=== PATIENT | female | born 1945 | race Caucasian/White ===

== ENCOUNTER 2025-02-26 08:43 | Observation (INO) ==
--- NOTE | 2025-01-25 14:11 | PAT Medication Instructions ---
Medication Instructions Date of Service January 25, 2025 Home Medications calcium citrate 200 mg PO BID cholecalciferol (vitamin D3) 25 mcg (1,000 unit) capsule (Vitamin D3) 25 mcg PO QAM coenzyme Q10 200 mg capsule (Co Q-10) 200 mg PO BID hydroxyzine pamoate 25 mg capsule 25 mg PO HS PRN Angioedema omalizumab 75 mg/0.5 mL subcutaneous syringe 0.5 mg subcut MONTHLY red yeast rice 600 mg tablet 600 mg PO BID albuterol sulfate 90 mcg/actuation aerosol inhaler 2 puff inhalation QID PRN asthma cetirizine 10 mg tablet 10 mg PO DAILY PRN Angioedema flaxseed oil 1,000 mg capsule 1,000 mg PO BID xtgilgyzmvlb-sljrffm-zzrts acid 400 mcg-lutein 250 mcg chewable tablet (Centrum Silver) 1 tab PO DAILY peg 400-propylene glycol 0.4 %-0.3 % eye drops (Systane Ultra) 2 drp ophthalmic (eye) BID PRN Dry Eyes sodium chloride 5 % eye ointment (Ilya 128) 1 applic ophthalmic (eye) HS vit C 250 mg-E 90 mg-zinc 40 mg-copper 1 cq-svhbid-tinqfu chew tablet (PreserVision AREDS-2) 1 tab PO AMPM Continue as directed hydroxyzine pamoate 25 mg capsule 25 mg PO HS PRN Angioedema (if needed) cetirizine 10 mg tablet 10 mg PO DAILY PRN Angioedema (if needed) ASK your prescriber and surgeon omalizumab 75 mg/0.5 mL subcutaneous syringe 0.5 mg subcut MONTHLY STOP taking 2 weeks before surgery (or as soon as possible if surgery is within 2 weeks) coenzyme Q10 200 mg capsule (Co Q-10) 200 mg PO BID flaxseed oil 1,000 mg capsule 1,000 mg PO BID vit C 250 mg-E 90 mg-zinc 40 mg-copper 1 pl-ezzmsi-ckhbnb chew tablet (PreserVision AREDS-2) 1 tab PO AMPM red yeast rice 600 mg tablet 600 mg PO BID DO NOT take the morning of surgery calcium citrate 200 mg PO BID cholecalciferol (vitamin D3) 25 mcg (1,000 unit) capsule (Vitamin D3) 25 mcg PO QAM eetlcejasztm-dddrjuh-ieszo acid 400 mcg-lutein 250 mcg chewable tablet (Centrum Silver) 1 tab PO DAILY Take morning of surgery With a small sip of water, OTHERWISE NOTHING TO EAT OR DRINK AFTER MIDNIGHT: albuterol sulfate 90 mcg/actuation aerosol inhaler 2 puff inhalation QID PRN asthma (use if needed; please bring rescue inhaler with you to hospital day of surgery if possible) peg 400-propylene glycol 0.4 %-0.3 % eye drops (Systane Ultra) 2 drp ophthalmic (eye) BID PRN Dry Eyes (if needed) Take evening before surgery calcium citrate 200 mg PO BID albuterol sulfate 90 mcg/actuation aerosol inhaler 2 puff inhalation QID PRN asthma (if needed) peg 400-propylene glycol 0.4 %-0.3 % eye drops (Systane Ultra) 2 drp ophthalmic (eye) BID PRN Dry Eyes (if needed) sodium chloride 5 % eye ointment (Ilya 128) 1 applic ophthalmic (eye) HS Other Notes If you have any questions please call us at [phone] or [phone] or [phone] or [phone]
--- NOTE | 2025-01-28 09:28 | Anesthesiology Consultation ---
Date of Service January 28, 2025 Assessment & Plan (1) Encounter for pre-operative examination: - asthma exacerbation if exposed to perfume, scented lotion, etc. OR made aware. - Outpatient joint assessment: Patient is currently scheduled for inpatient pathway. If re-evaluated and patient/surgeon requests outpatient pathway, patient is not recommended candidate for outpatient joint program. Chart Review Chart Review: Acceptable Risk for Surgery and Patient seen in Pre Admission Testing Teaching & Discussion Pre-Anesthesia Teaching/Discussion Notes: Instructed NPO after midnight before surgery, except medications with 15 cc of water. Medication instructions provided according to the PAT guidelines. History Surgery Operation Date: 02/26/25 11:00 Proposed Procedures p Right Anatomic Total Shoulder Arthroplasty Versus Right Reverse Total Shoulder Arthroplasty - Avery Thompson, Height/Weight Height: 5 ft 1 in Weight: 82 kg Allergies Allergy/AdvReac Type Severity Reaction Status Date / Time amoxicillin Allergy Intermediate Hives Verified 01/19/25 12:18 cephalexin [From Keflex] Allergy Intermediate Hives Verified 01/19/25 12:18 iodine Allergy Intermediate Hives Verified 01/19/25 12:18 latex Allergy Mild Itching Verified 01/19/25 12:18 nickel Allergy Mild Itching Verified 01/19/25 12:39 Medications Home Medications Medication Instructions Recorded Confirmed Last Taken calcium citrate 200 mg PO BID 06/02/21 01/19/25 07/04/21 cholecalciferol (vitamin D3) 25 25 mcg PO QAM 06/02/21 01/19/25 07/04/21 mcg (1,000 unit) capsule (Vitamin D3) coenzyme Q10 200 mg capsule (Co 200 mg PO BID 06/02/21 01/19/25 07/04/21 Q-10) hydroxyzine pamoate 25 mg capsule 25 mg PO HS PRN Angioedema 06/02/21 01/19/25 07/04/21 omalizumab 75 mg/0.5 mL 0.5 mg subcut MONTHLY 06/02/21 01/19/25 06/28/21 subcutaneous syringe red yeast rice 600 mg tablet 600 mg PO BID 06/02/21 01/19/25 07/04/21 albuterol sulfate 90 mcg/actuation 2 puff inhalation QID PRN asthma 01/19/25 01/19/25 Unknown aerosol inhaler cetirizine 10 mg tablet 10 mg PO DAILY PRN Angioedema 01/19/25 01/19/25 Unknown flaxseed oil 1,000 mg capsule 1,000 mg PO BID 01/19/25 01/19/25 Unknown xtxqhzgfnuia-ebytgae-oialy acid 1 tab PO DAILY 01/19/25 01/19/25 Unknown 400 mcg-lutein 250 mcg chewable tablet (Centrum Silver) peg 400-propylene glycol 0.4 %-0.3 2 drp ophthalmic (eye) BID PRN Dry 01/19/25 01/19/25 Unknown % eye drops (Systane Ultra) Eyes sodium chloride 5 % eye ointment 1 applic ophthalmic (eye) HS 01/19/25 01/19/25 Unknown (Ilya 128) vit C 250 mg-E 90 mg-zinc 40 1 tab PO AMPM 01/19/25 01/19/25 Unknown mg-copper 1 sc-qxtlqz-bbrdmv chew tablet (PreserVision AREDS-2) Past Medical History Medical History (Updated 01/28/25 @ 09:26 by Shereen Reyes PA-C) Angioedema Hydroxyzine/ Omalizumab/ cetirizine- follows with invasive physician dr. stokes ([facility])- reports occurred due to a root canal procedure-states invasive physician is currently weaning regimen and she is doing well with this Asthma mild- brought on by smells - rare use of albuterol prn-unsure of last use Hyperlipidemia Osteoarthritis of right shoulder Slow to wake up after anesthesia Urticaria Hydroxyzine/ Omalizumab/ cetirizine Patient denies h/o stroke, seizures, heart attack, heart failure, DM, HTN, blood clots/DVTs or blood transfusions. Exercise / Class Metabolic Activity II 4-5 Yardwork/Stairs/Walk up hill (denies chest discomfort or shortness of breath with one flight of stairs) Past Family History Family History Sister Diabetes Sister Colon cancer Past Surgical History Surgical History History of cataract surgery (2020) right and left History of colonoscopy History of open reduction and internal fixation (ORIF) procedure pin in left foot History of tonsillectomy History of tooth extraction removable plates Hx of breast reduction, elective Past Anesthesia History Other (slowness to wake with anesthesia; sister also slow to wake) History of PONV No Hx of PONV and No Hx of Motion Sickness Social History Smoking Status: Never smoker Do You Dip or Chew Tobacco: No Hx Alcohol Use: Yes Alcohol type: wine alcohol intake frequency: holidays/special occasions only Hx Substance Use: No substance use type: does not use Review of Systems Snoring, denies witnessed apneas. Patient denies chest pain, shortness of breath, dyspnea on exertion, fever, chills, cough, wheezing, or palpitations. Physical Exam Vital Signs Vitals BP 145/78 P 74 TEMP 98.7 SP02 94% on RA RESP 19 Physical Patient resting comfortably in chair in no acute distress, alert and oriented, responding appropriately throughout visit Full cervical extension range of motion without pain TMD 3 finger breadths Mallampati Score 2 Dentition: removable plates, denies chipped or loose teeth, caps/crowns, implants Lungs: normal respiratory effort. Good air movement, clear throughout to auscultation, no adventitious breath sounds Cardiac: regular rate and rhythm, no murmurs noted Carotid arteries: negative bruit bilat Lab Results Anesthesia Preop Results Results Anesthesia Widget: WBC 6.13 K/ul (4.8-10.8) 01/28/25 Hgb 13.6 g/dl (12.0-16.0) 01/28/25 Hct 42.3 % (37.0-47.0) 01/28/25 Plt 271 K/uL (130-400) 01/28/25 Na 141 mmol/L (136-145) 01/28/25 K 4.0 mmol/L (3.5-5.1) 01/28/25 Cl 107 mmol/L (98-107) 01/28/25 CO2 31 mmol/L (21-32) 01/28/25 BUN 20 mg/dl (6-23) 01/28/25 Creat 0.86 mg/dl (0.6-1.2) 01/28/25 Glucose Level 104 mg/dl (70-99(Fasting)) H 01/28/25 PT 10.7 Seconds (9.0-12.0) 01/28/25 PTT 27 Seconds (21-31) 01/28/25 INR 1.0 (0.9-1.1) 01/28/25 Blood Type O Positive 01/28/25 Antibody Screen NEGATIVE 01/28/25 Testing Electrocardiogram Date: 01/28/25 NSR, rate 80 bpm Low voltage QRS RBBB Chest X-Ray Date: 01/28/25 No active cardiopulmonary pathology seen.
--- NOTE | 2025-02-25 14:02 | History & Physical Report ---
Date of Service February 25, 2025 Assessment & Plan (1) Osteoarthritis of right shoulder: We will proceed with a right total shoulder arthroplasty. Postoperatively she will be placed in a sling and kept overnight in the hospital for postop medical management. She plans to use energy physical therapy upon discharge. History of Present Illness Chief Complaint: Glenohumeral arthritis of the right shoulder. Primary Care Provider: Sheri Cedeño MD Annie is a pleasant 79-year-old female who has been dealing with chronic right shoulder pain. She has had injections in the past, which never really helped. She has some crepitus and crunching in her shoulder joint. She has been doing therapy with minimal relief. MRI and clinical examination were diagnostic for advanced osteoarthritis of the right shoulder. If failed conservative treatment, she has elected to proceed with a right anatomic total shoulder arthroplasty. Allergies Allergy/AdvReac Type Severity Reaction Status Date / Time amoxicillin Allergy Intermediate Hives Verified 01/19/25 12:18 cephalexin [From Keflex] Allergy Intermediate Hives Verified 01/19/25 12:18 iodine Allergy Intermediate Hives Verified 01/19/25 12:18 latex Allergy Mild Itching Verified 01/19/25 12:18 nickel Allergy Mild Itching Verified 01/19/25 12:39 Home Medications Medication Instructions Recorded Confirmed Type calcium citrate 200 mg PO BID 06/02/21 01/19/25 History cholecalciferol (vitamin D3) 25 25 mcg PO QAM 06/02/21 01/19/25 History mcg (1,000 unit) capsule (Vitamin D3) coenzyme Q10 200 mg capsule (Co 200 mg PO BID 06/02/21 01/19/25 History Q-10) hydroxyzine pamoate 25 mg capsule 25 mg PO HS PRN Angioedema 06/02/21 01/19/25 History omalizumab 75 mg/0.5 mL 0.5 mg subcut MONTHLY 06/02/21 01/19/25 History subcutaneous syringe red yeast rice 600 mg tablet 600 mg PO BID 06/02/21 01/19/25 History albuterol sulfate 90 mcg/actuation 2 puff inhalation QID PRN asthma 01/19/25 01/19/25 History aerosol inhaler cetirizine 10 mg tablet 10 mg PO DAILY PRN Angioedema 01/19/25 01/19/25 History flaxseed oil 1,000 mg capsule 1,000 mg PO BID 01/19/25 01/19/25 History moiwziigppzh-htzqzsh-hhfaf acid 1 tab PO DAILY 01/19/25 01/19/25 History 400 mcg-lutein 250 mcg chewable tablet (Centrum Silver) peg 400-propylene glycol 0.4 %-0.3 2 drp ophthalmic (eye) BID PRN Dry 01/19/25 01/19/25 History % eye drops (Systane Ultra) Eyes sodium chloride 5 % eye ointment 1 applic ophthalmic (eye) HS 01/19/25 01/19/25 History (Ilya 128) vit C 250 mg-E 90 mg-zinc 40 1 tab PO AMPM 01/19/25 01/19/25 History mg-copper 1 de-yewqxj-awqhyi chew tablet (PreserVision AREDS-2) Past Med/Surg History Problem List Osteoarthritis of right shoulder Encounter for pre-operative examination Medical History Osteoarthritis of right shoulder Asthma mild- brought on by smells - rare use of albuterol prn-unsure of last use Hyperlipidemia Urticaria Hydroxyzine/ Omalizumab/ cetirizine Angioedema Hydroxyzine/ Omalizumab/ cetirizine- 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 weaning regimen and she is doing well with this Slow to wake up after anesthesia Surgical History History of open reduction and internal fixation (ORIF) procedure pin in left foot History of cataract surgery (2020) right and left History of tonsillectomy History of tooth extraction removable plates Hx of breast reduction, elective History of colonoscopy Family History Sister Diabetes Sister Colon cancer Social History Smoking Status: Never smoker Second Hand Exposure: No; Do You Dip or Chew Tobacco: No; Tobacco Cessation Education Requested by Patient: No Hx Alcohol Use: Yes Alcohol type: wine Hx Substance Use: No Preferred Language: Argentine Communication Ability: Effective 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 Physical Exam Home physical exam of the right shoulder, she has slightly decreased range of motion. She has 5 5 strength throughout. She has pain over the glenohumeral joint line. Constitutional WD/WN, vitals as above Eyes PERRL, conjunctivae normal, anicteric sclerae ENMT external ear and nose normal, oropharynx normal Neck trachea midline, no thyromegaly Respiratory normal respiratory effort Cardiovascular RRR, no murmur, no edema Gastrointestinal (Abdomen) normal bowel sounds, soft, nontender, no hepatosplenomegaly Psychiatric A+Ox3, euthymic affect Results & Data Results & Data Laboratory Results . Diagnostic Findings MRI of the right shoulder shows advanced osteoarthritis with joint space narrowing, osteophyte summation, and sgyx-bm-dvms articulation.. . PG Care Time/CCT Total # of Minutes Spent Total Time Spent with Patient: Total time spent is greater than 50% in coordination of care (as documented) at patient's floor/unit and/or counseling patient: Coding Level of Care Code None Diagnoses Osteoarthritis of right shoulder M19.011
[~2025-02-26 08:43] MED LIST: BUPIVACAINE 0.5 % 5 MG/1 ML PF 10ML VIAL ONE; LIDOCAINE 2% 2 ML VIAL/AMP(20MG/ML) INFIL ONE; MIDAZOLAM HCL 1 MG/ML 2ML VIAL ONE; ONDANSETRON INJ 2 MG/ML 2 ML VIAL ONE; PROPOFOL IV EMULSION 10 MG/ML 20 ML VIAL IV ONE; fentaNYL citrate PF 100 MCG/2 ML VIAL ONE
[2025-02-26] MEDS: ACETAMINOPHEN 500 MG TAB PO SCH ×2 (09:33→21:26)
[2025-02-26] MEDS: FAMOTIDINE 20 MG TAB PO SCH (09:34)
[2025-02-26] MEDS: LR 60ML/HR IV SCH (09:34)
[2025-02-26] MEDS: GABAPENTIN 300 MG CAP PO SCH (09:34)
[2025-02-26] MEDS: dexAMETHasone**PF** 10 MG/ML VIAL IV SCH (09:34)
[2025-02-26] MEDS: LACTATED RINGER'S 1,000 ML IV SCH (09:45)
--- OUTSIDE RECORDS SUMMARY | 2025-02-26 10:36 | External Medical Summary | Summary of Care ---
Author Name Unknown Organization [facility] Address [address] [place] [address] Phone [phone] Care Team Providers Care Gas Regulator Repairer Helper Name Role Phone Sheri Cedeño MD Primary Care Provider [phone] Reason for Visit * Reason Onset Date Comments Advice 01/28/2025 Injection Encounter Details Date Type Department Care Team (Late st Contact Info) Description 01/28/2025 Telephone Allergy/Immunology, [place] [address] [place] [address] Hollis Vick MD [address] [place] [address] Advice (Injection) Allergies Active Allergy Reactions Criticality Noted Date Comments Adhesive Tape Hives 07/31/2013 Amoxicillin Hives 11/02/2014 Bee Venom 10/29/2018 Iodine Hives 11/02/2014 Cephalexin Rash 11/02/2014 Penicillins Hives 03/15/2016 documented as of this encounter (statuses as of 02/01/2025) Medications VITAMIN D3 5000 UNITS PO TABS 1 tablet daily A ctive Albuterol Sulfate HFA 108 (90 Base) MCG/ACT Inhalation Aerosol Solution Inhale 2 Puffs by mouth every 4 hours as needed. Active Red Yeast Rice 600 MG CAPS Take 2 Capsules by mouth in the morning and 2 Capsules before bedtime. Active Coenzyme Q10 (COQ10) 200 MG CAPS Take 1 Tab by mouth 2 times a day. Active omalizumab (XOLAIR) 150 MG SOLR Inject 300 mg under the skin every 4 weeks. 2.4 mL 11 7 Active Calcium Citrate-Vitamin D 200-250 MG-UNIT Oral Tablet Take 1 Tablet by mouth in the morning and 1 Tablet before bedtime. Active Flax Seed Oil 1000 MG Oral Capsule Take 1 Capsule by mouth in the morning and 1 Capsule before bedtime. Active Albuterol Sulfate HFA 108 (90 Base) MCG/ACT Inhalation Aerosol SolutionIndicat ions:Asthma, mild intermittent, well-controlled Inhale by mouth 2 Puffs every 4 hours as needed for Cough, Shortness of Breath or Wheezing. 3 to 5 minutes apart. 18 g 1 2 Active ICaps AREDS Formula Oral Tablet Take by mouth. Activ e Artificial Tears 0.1-0.3 % Ophthalmic Solution (Dextran 70-Hypromellose ) Instill into eye. Active Centrum Silver 50+Women Oral Tablet Take by mouth. Activ e Fluticasone Propionate 50 MCG/ACT Nasal Suspension (Flonase) Administer 2 Sprays into each nostril in the morning. 3 Active Ilya 128 5 % Ophthalmic Ointment APPLY 1/2 INCH RIBBON INSIDE THE LOWER LEFT EYELID ONCE DAILY AT BEDTIME 4 Active EPINEPHrine 0.3 MG/0.3ML Injection Solution Auto-injector (Autoinjector)I ndications:Shank Tapper sherice idiopathic urticaria For a severe reaction: Inject in outer thigh following instructions on package and go to the Emergency room. 2 Each 3 4 Active hydrOXYzine Pamoate 25 MG Oral Capsule (Vistaril)Indic ations:Chronic idiopathic urticaria Take 1 Capsule by mouth at bedtime. 30 Capsule 11 4 Active Cetirizine HCl 10 MG Oral Tablet (ZyrTEC)Indicat ions:Chronic idiopathic urticaria TAKE 1 TABLET BY MOUTH ONCE DAILY IN THE MORNING 30 Tablet 5 4 Active Hospital, Clinic, or Other Facility Administered Medication Ordered Dose Route Frequency Start Date End Date Status Omalizumab (Xolair) inj 150 mgIndications:Chronic idiopathic urticaria 150 mg SC [id number] 06/24/2024 Acti ve Omalizumab (Xolair) inj 150 mgIndications:Chronic idiopathic urticaria 150 mg SC [id number] 06/24/2024 Acti ve Omalizumab (Xolair) inj 150 mgIndications:Chronic idiopathic urticaria 150 mg SC [id number] 06/24/2024 Acti ve documented as of this encounter (statuses as of 02/01/2025) Active Problems Problem Noted Date Diagnosed Date Urticaria 11/23/2014 Angioedema 11/23/2014 H/O allergy to radiographic contrast media 11/23 Drug allergy, antibiotic 11/23/2014 H/O allergy to latex 11/23/2014 documented as of this encounter (statuses as of 02/01/2025) Resolved Problems Problem Noted Date Diagnosed Date Resolved Date Encounter for examination fo r normal comparison and control in clinical research program 02/11/2019 06/20/2020 Overview (03/06/2021): DO NOT DELETE [employer] DETECT Study: Project # [id number], Tool Filer Hand: Hollis Pitts, PhD. SUMMARY: Goal: Establish test characteristics (sensitivity, specificity, PPV, NPV) of a circulating tumor DNA (ctDNA)-based test for cancer. Hypothesis: Circulating tumor DNA (ctDNA) and elevated protein biomarkers (together, the marker panel) can be detected in asymptomatic individuals with early cancer. Specific Aim 1: Determine the prevalence of a positive marker panel test in a prospective clinical cohort of 10,000 asymptomatic women ages 65 to 75 years. Specific Aim 2: Determine the sensitivity, specificity, positive predictive value (PPV) and negative predictive value (NPV) of a marker panel test to identify histologically proven cancers that develop within 5-years of the marker panel evaluation. CONTACTS: During normal business hours, contact study staff at ; after hours Tool Filer Hand via the [facility] foundation drill operator helper . Please contact study team before resolving/deleting from patients problem list. Study phone number: [phone]. Diagnosis changed due to Research Module. Go to Snapshot for study details. Encounter for examination fo r normal comparison and control in clinical research program 02/11/2019 07/19/2022 Overview (03/06/2021): DO NOT DELETE [email or web address] DETECT Study: Project # [id number], Tool Filer Hand: Bob Conner, MS, MPH. SUMMARY: Goal: Establish test characteristics (sensitivity, specificity, PPV, NPV) of a circulating tumor DNA (ctDNA)-based test for cancer. - Hypothesis: Circulating tumor DNA (ctDNA) and elevated protein biomarkers (together, the marker panel) can be detected in asymptomatic individuals with early cancer. - Specific Aim 1: Determine the prevalence of a positive marker panel test in a prospective clinical cohort of 10,000 asymptomatic women ages 65 to 75 years. - Specific Aim 2: Determine the sensitivity, specificity, positive predictive value (PPV) and negative predictive value (NPV) of a marker panel test to identify histologically proven cancers that develop within 5-years of the marker panel evaluation. - CONTACTS: During normal business hours, contact study staff at ; after hours Tool Filer Hand via the [facility] foundation drill operator helper . - Please contact study team before resolving/deleting from patients problem list. Study phone number: [phone]. Diagnosis changed due to Research Module. Go to Snapshot for study details. Hypothyroidism 11/23/2014 03/23/2015 documented as of this encounter (statuses as of 02/01/2025) Immunizations Name Administration Dates Next Due COVID-19 mRNA, LNP-s, No Pre serve, 2-Dose Series (Moderna) 01/16/2021,12/12/2020 COVID-19, mRNA, LNP-s, PF, B ooster, 100mcg/0.5mg (Moderna) 09/14/2021 Pneumococcal Conjugate Vacc, 13 Valent (Prevnar) 09/20/2015 Pneumococcal Polysaccharide PPV23 (Pneumovax) 07/31/2013 Seasonal Influenza Vac., MDV , IM, 0.5 mL (Fluzone) 09/20/2015,08/17/2014,07/31/2013 Seasonal Influenza, High Dos e, Trivalent, PF, IM (Fluzone HD) 08/15/2017 documented as of this encounter Social History Tobacco Use Types Packs/Day Years Used Date Smoking Tobacco: Never Smokeless Tobacco: Never Alcohol Use Standard Drinks/Week Comments Not Currently 1.7 (1 standard drink = 0.6 oz p ure alcohol) Comments No Sex and Gender Information Value Date Recorded Sex Assigned at Not on file Legal Sex Female 7:06 AM EST Gender Identity Not on file Sexual Orientation Not on file 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 Answer Date of Assessment Author No 03/23/2015 2:00 PM Amadeo Campos LPN * Are you blind or do you have serious difficulty seeing, even when wearing glasses? Answer Date of Assessment Author No 03/23/2015 2:00 PM ROMELT Amadeo Gutierrez LPN * Do you have serious difficulty walking or climbing stairs? (5 years old or older) Answer Date of Assessment Author No 03/23/2015 2:00 PM EDT Amadeo Gutierrez LPN * Do you have difficulty dressing or bathing? (5 years old or older) Answer Date of Assessment Author No 03/23/2015 2:00 PM Amadeo Campos LPN * Because of a physical, mental, or emotional condition, do you have difficulty doing errands alone such as visiting a doctor’s office or shopping? (15 years old or older) Answer Date of Assessment Author No 03/23/2015 2:00 PM Amadeo Campos LPN documented as of this encounter Mental Status * Because of a physical, mental, or emotional condition, do you have serious difficulty concentrating, remembering, or making decisions? (5 years old or older) Answer Entry Date Author No 03/23/2015 2:00 PM Amadeo Campos LPN documented in this encounter Miscellaneous Notes * Telephone Encounter - Heena Mendoza LPN - 02/01/2025 7:36 AM EDT Please advise if ok to get Xolair, I already have the Xolair here and she is already scheduled for the shot she is just asking if it is ok to get it with upcoming shoulder surgery * Telephone Encounter - Nicolle Gonzalez LPN - 01/28/2025 12:01 PM EDT Ladies can you help Annie since she is getting her xolair with you now Nicolle Gonzalez LPN * Telephone Encounter - Hollis Vick MD - 01/28/2025 11:57 AM EDT Please work with Mrs. Valdes to get her Xolair. Thanks. * Telephone Encounter - Rachelle Bray OSA - 01/28/2025 11:51 AM EDT Pt calling in she has shoulder surgery on 02/26 and she is due for her next injection on 02/16. Is sheokay to come in for injection. To note: When placing call on hold, it disconnected, when I tried to call back it said she was not available documented in this encounter Plan of Treatment Upcoming Encounters Date Type Department Care Team (Late st Contact Info) Description 02/16/2025 9:00 AM EDT Nurse Only Allergy/Immunology [facility] Natacha [place] [address] [place] [address] Natacha, Nurse Allergy [facility] [address] [place] [address] 03/16/2025 11:00 AM EDT Nurse Only Allergy/Immunology [facility] Natacha [place] [address] [place] [address] Natacha Nurse Allergy [facility] [address] [place] [address] 07/20/2025 1:00 PM EDT Office Visit [facility] [address] [place] [address] Hollis Vick MD [address] [place] [address] Health Maintenance Due Date Last Done Comments Depression Screening 1957 Hepatitis C Screening 1963 DTap/Tdap Vaccines (1 - Tdap) 1966 COVID-19 Vaccine ( season) 2024 02/11/2023, 09/14/2021, 01/16/2021, Additional history exists Influenza Vaccine (FLU shot) (#1) 2024 08/14/2022, 08/21/2021, 08/18/2019, Additional history exists DXA Scan 02/18/2030 02/18/2023, 10/31/2018 Pneumococcal Vaccine: 50+ Years Completed 09/20/2015, 07/31/2013 Zoster Vaccines Completed 05/19/2019, 03/13/2019 HPV (Gardasil) Vaccine Aged Out No lo nger eligible based on patient's age to complete this topic Hepatitis B Vaccine Aged Out No longe r eligible based on patient's age to complete this topic MENINGOCOCCAL (MENACTRA/MENVEO) Aged Out No longer eligible based on patient's age to complete this topic Meningitis B Vaccine (Bexsero/Trumemba) Aged Out No longer eligible based on patient's age to complete this topic documented as of this encounter Medical Devices Not on filedocumented as of this encounter Care Teams Gas Regulator Repairer Helper Relationship Specialty Start Date End Date Sheri Cedeño MD [address] [place] [id number] PCP - General Family Medicine 04/18/21 documented as of this encounter
--- OUTSIDE RECORDS SUMMARY | 2025-02-26 10:36 | External Medical Summary | Summary of Care ---
Author Name Unknown Organization [facility] Address [address] [place] [address] Phone [phone] Care Team Providers Care Jig Builder Name Role Phone Sheri Cedeño MD Primary Care Provider [phone] Reason for Visit * Reason Onset Date Comments Advice 01/28/2025 Injection Encounter Details Date Type Department Care Team (Late st Contact Info) Description 01/28/2025 Telephone Allergy/Immunology, [place] [address] [place] [address] Hollis Vick MD [address] [place] [address] Advice (Injection) Allergies Active Allergy [...] EPINEPHrine 0.3 MG/0.3ML Injection Solution Auto-injector (Autoinjector)I ndications:Change Management Lead sherice idiopathic urticaria For a severe reaction: [...] 150 mgIndications:Chronic idiopathic urticaria 150 mg SC [id number] 06/24/2024 Acti ve Omalizumab (Xolair) inj 150 mgIndications:Chronic idiopathic urticaria 150 mg SC [id number] 06/24/2024 Acti ve Omalizumab (Xolair) inj 150 mgIndications:Chronic idiopathic urticaria 150 mg SC [id number] 06/24/2024 Acti ve documented as of this [...] 02/11/2019 06/20/2020 Overview (03/06/2021): DO NOT DELETE [employer] DETECT Study: Project # [id number], Sausage Cooker: Hollis Pitts, PhD. SUMMARY: Goal: Establish test [...] contact study staff at ; after hours Sausage Cooker via the [facility] cnc operator machinist . Please contact study team before resolving/deleting from patients problem list. Study phone number: [phone]. Diagnosis changed due to Research Module. Go to Snapshot for study details. Encounter for examination fo r normal comparison and control in clinical research program 02/11/2019 07/19/2022 Overview (03/06/2021): DO NOT DELETE [employer] DETECT Study: Project # [id number], Sausage Cooker: Bob Conner, MS, MPH. SUMMARY: Goal: Establish [...] contact study staff at ; after hours Sausage Cooker via the [facility] hospital cnc operator machinist . - Please contact study team before resolving/deleting from patients problem list. Study phone number: [phone]. Diagnosis changed due to Research Module. 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 Antione Kirby MD * Telephone Encounter - Heena Mendoza LPN [...] 02/16/2025 9:00 AM EDT Nurse Only Allergy/Immunology [place] [address] [place] [address] Natacha Nurse Allergy Maria [place] [address] [place] [address] 03/16/2025 11:00 AM EDT Nurse Only Allergy/Immunology [place] Galleg[place] [address] [place] [address] Nurse Natacha Allergy Maria E [address] [place] [address] 07/20/2025 1:00 PM EDT Office Visit [facility] [address] [facility] [place] [address] Hollis Vick MD [address] [place] [address] Health Maintenance Due Date Last Done Comments Depression Screening 1957 Hepatitis C Screening 1965 DTap/Tdap Vaccines (1 - Tdap) 1966 COVID-19 Vaccine (5 - season) 2024 02/11/2023, 09/14/2021, 01/16/2021, Additional history [...] filedocumented as of this encounter Care Teams Jig Builder Relationship Specialty Start Date End Date Sheri Cedeño MD [address] [place] [id number] PCP - General Family Medicine 04/18/21 documented as of this encounter
--- OUTSIDE RECORDS SUMMARY | 2025-02-26 10:36 | External Medical Summary | Summary of Care ---
Author Name Unknown Organization [facility] Address [address] [place] [address] Phone [phone] Care Team Providers Care Director Product Safety Name Role Phone Sheri Cedeño MD Primary Care Provider [phone] Reason for Visit * Reason Onset Date Comments Advice 01/28/2025 Injection Encounter Details Date Type Department Care Team (Late st Contact Info) Description 01/28/2025 Telephone Allergy/Immunology, [place] [address] [place] [address] Hollis Vick MD [address] [place] [address] Advice (Injection) Allergies Active Allergy Reactions Criticality Noted Date Comments Adhesive Tape Hives 07/31/2013 Amoxicillin Hives 11/02/2014 Bee Venom 10/29/2018 Iodine Hives 11/02/2014 Cephalexin Rash 11/02/2014 Penicillins Hives 03/15/2016 documented as of this encounter (statuses as of 01/28/2025) Medications VITAMIN D3 5000 UNITS PO TABS [...] EPINEPHrine 0.3 MG/0.3ML Injection Solution Auto-injector (Autoinjector)I ndications:Wire Coating Operator Metal sherice idiopathic urticaria For a severe reaction: [...] 150 mgIndications:Chronic idiopathic urticaria 150 mg SC [id number] 06/24/2024 Acti ve Omalizumab (Xolair) inj 150 mgIndications:Chronic idiopathic urticaria 150 mg SC [id number] 06/24/2024 Acti ve Omalizumab (Xolair) inj 150 mgIndications:Chronic idiopathic urticaria 150 mg SC [id number] 06/24/2024 Acti ve documented as of this encounter (statuses as of 01/28/2025) Active Problems Problem Noted Date Diagnosed Date Urticaria 11/23/2014 Angioedema 11/23/2014 H/O allergy to radiographic contrast media 11/23 Drug allergy, antibiotic 11/23/2014 H/O allergy to latex 11/23/2014 documented as of this encounter (statuses as of 01/28/2025) Resolved Problems Problem Noted Date Diagnosed Date Resolved Date Encounter for examination fo r normal comparison and control in clinical research program 02/11/2019 06/20/2020 Overview (03/06/2021): DO NOT DELETE [employer] DETECT Study: Project # [id number], Tromper: Hollis Pitts, PhD. SUMMARY: Goal: Establish test [...] contact study staff at ; after hours Tromper via the [facility] senior reactor operator . Please contact study team before resolving/deleting from patients problem list. Study phone number: [phone]. Diagnosis changed due to Research Module. Go to Snapshot for study details. Encounter for examination fo r normal comparison and control in clinical research program 02/11/2019 07/19/2022 Overview (03/06/2021): DO NOT DELETE [employer] DETECT Study: Project # [id number], Tromper: Bob Conner, MS, MPH. SUMMARY: Goal: Establish [...] contact study staff at ; after hours Tromper via the [facility] senior reactor operator . - Please contact study team before resolving/deleting from patients problem list. Study phone number: [phone]. Diagnosis changed due to Research Module. Go to Snapshot for study details. 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 Answer Date of Assessment Author No 03/23/2015 2:00 PM ROMELT Amadeo Gutierrez LPN * Are you blind or do you have serious difficulty seeing, even when wearing glasses? Answer Date of Assessment Author No 03/23/2015 2:00 PM EDT Amadeo Gutierrez, LÓPEZ * Do you have serious difficulty walking [...] encounter Miscellaneous Notes * Telephone Encounter - Nicolle Gonzalez LPN [...] 02/16/2025 9:00 AM EDT Nurse Only Allergy/Immunology [facility] Natacha [place] [address] [place] [address] Natacha Nurse Allergy [facility] [address] [place] [address] 03/16/2025 11:00 AM EDT Nurse Only Allergy/Immunology [facility] Natacha [place] [address] [place] [address] Natacha Nurse Allergy [facility] [address] [place] [address] 07/20/2025 1:00 PM EDT Office Visit Allergy/Immunology, [place] [address] [place] [address] Hollis Vick MD [address] [place] [address] Health Maintenance Due Date Last Done Comments [...] filedocumented as of this encounter Care Teams Director Product Safety Relationship Specialty Start Date End Date Sheri Cedeño MD [address] [place] [address] [phone] PCP - General Family Medicine 04/18/21 documented as of this encounter
--- OUTSIDE RECORDS SUMMARY | 2025-02-26 10:36 | External Medical Summary | Summary of Care ---
Author Name Unknown Organization [facility] Address [address] [place] [address] Phone [phone] Care Team Providers Care Lumber Buyer Name Role Phone Sheri Cedeño MD Primary Care Provider [phone] Reason for Visit * Reason Onset Date Comments Advice 01/28/2025 Injection Encounter Details Date Type Department Care Team (Late st Contact Info) Description 01/28/2025 Telephone Allergy/Immunology, [place] [address] [place] [address] Hollis Vick MD [address] [place] [address] Advice (Injection) Allergies Active Allergy [...] EPINEPHrine 0.3 MG/0.3ML Injection Solution Auto-injector (Autoinjector)I ndications:Software Engineer Advisor sherice idiopathic urticaria For a severe reaction: [...] 150 mgIndications:Chronic idiopathic urticaria 150 mg SC [id number] 06/24/2024 Acti ve Omalizumab (Xolair) inj 150 mgIndications:Chronic idiopathic urticaria 150 mg SC [id number] 06/24/2024 Acti ve Omalizumab (Xolair) inj 150 mgIndications:Chronic idiopathic urticaria 150 mg SC [id number] 06/24/2024 Acti ve documented as of this [...] 02/11/2019 06/20/2020 Overview (03/06/2021): DO NOT DELETE [employer] DETECT Study: Project # [id number], Gear Shaper Set Up Operator: Hollis Pitts, PhD. SUMMARY: Goal: Establish test [...] contact study staff at ; after hours Gear Shaper Set Up Operator via the [facility] office machine embossograph operator . Please contact study team before resolving/deleting from patients problem list. Study phone number: [phone]. Diagnosis changed due to Research Module. Go to Snapshot for study details. Encounter for examination fo r normal comparison and control in clinical research program 02/11/2019 07/19/2022 Overview (03/06/2021): DO NOT DELETE [employer] DETECT Study: Project # [id number], Gear Shaper Set Up Operator: Bob Conner, MS, MPH. SUMMARY: Goal: Establish [...] contact study staff at ; after hours Gear Shaper Set Up Operator via the [facility] hospital office machine embossograph operator . - Please contact study team before resolving/deleting from patients problem list. Study phone number: [phone]. Diagnosis changed due to Research Module. 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 Not [...] 02/16/2025 9:00 AM EDT Nurse Only Allergy/Immunology [facility] Natacha [place] [address] [place] [address] Natacha Nurse Allergy [facility] [address] [place] [address] 03/16/2025 11:00 AM EDT Nurse Only Allergy/Immunology [facility] Natacha [place] [address] [place] [address] Natacha Nurse Allergy [facility] [address] [place] [address] 07/20/2025 1:00 PM EDT Office Visit Allergy/Immunology, [place] [address] [place] [address] Hollis Vick MD [address] [place] [address] Health Maintenance Due Date Last [...] filedocumented as of this encounter Care Teams Lumber Buyer Relationship Specialty Start Date End Date Sheri Cedeño MD [address] [place] [phone] PCP - General Family Medicine 04/18/21 documented as of this encounter
--- OUTSIDE RECORDS SUMMARY | 2025-02-26 10:36 | External Medical Summary | Summary of Care ---
Author Name Unknown Organization [facility] Address [address] [place] [address] Phone [phone] Care Team Providers Care Electrostatic Paint Operator Name Role Phone Sheri Cedeño MD Primary Care Provider [phone] Reason for Visit * Reason Onset Date Comments Advice 01/28/2025 Injection Encounter Details Date Type Department Care Team (Late st Contact Info) Description 01/28/2025 Telephone Allergy/Immunology, [place] [address] [place] [address] Hollis Vick MD [address] [place] [address] Advice (Injection) Allergies Active Allergy [...] EPINEPHrine 0.3 MG/0.3ML Injection Solution Auto-injector (Autoinjector)I ndications:Authorization Manager sherice idiopathic urticaria For a severe reaction: [...] 150 mgIndications:Chronic idiopathic urticaria 150 mg SC [id number] 06/24/2024 Acti ve Omalizumab (Xolair) inj 150 mgIndications:Chronic idiopathic urticaria 150 mg SC [id number] 06/24/2024 Acti ve Omalizumab (Xolair) inj 150 mgIndications:Chronic idiopathic urticaria 150 mg SC [id number] 06/24/2024 Acti ve documented as of this [...] 02/11/2019 06/20/2020 Overview (03/06/2021): DO NOT DELETE [facility] DETECT Study: Project # [id number], Director Of Respiratory Therapy: Hollis Pitts, PhD. SUMMARY: Goal: Establish test [...] contact study staff at ; after hours Director Of Respiratory Therapy via the [facility] hospital ethylbenzene converter operator . Please contact study team before resolving/deleting from patients problem list. Study phone number: [phone]. Diagnosis changed due to Research Module. Go to Snapshot for study details. Encounter for examination fo r normal comparison and control in clinical research program 02/11/2019 07/19/2022 Overview (03/06/2021): DO NOT DELETE [facility] DETECT Study: Project # [id number], Director Of Respiratory Therapy: Bob Conner, MS, MPH. SUMMARY: Goal: Establish [...] contact study staff at ; after hours Director Of Respiratory Therapy via the [facility] hospital ethylbenzene converter operator . - Please contact study team before resolving/deleting from patients problem list. Study phone number: [phone]. Diagnosis changed due to Research Module. 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 Answer Date of Assessment Author No 03/23/2015 2:00 PM EDT Amadeo Gutierrez LPN * Are you blind [...] 2:00 PM ROMELT Amadeo Gutierrez LPN * Because of a physical, mental, or emotional condition, do you have difficulty doing errands alone such as visiting a doctor’s office or shopping? (15 years old or older) Answer Date of Assessment Author No 03/23/2015 2:00 PM EDT Amadeo Gutierrez LPN documented as of this encounter Mental Status * Because of a physical, mental, or emotional condition, do you have serious difficulty concentrating, remembering, or making decisions? (5 years old or older) Answer Entry Date Author No 03/23/2015 2:00 PM EDAmadeo Srivastava LPN documented in this encounter Miscellaneous Notes * Telephone Encounter - Heena Mendoza LPN - 02/01/2025 8:00 AM EDT Spoke to pt and appointment kept as planned. * Telephone Encounter - Antione Kirby MD [...] [place] [address] [place] [address] Natacha Nurse Allergy [place] [address] [place] [id number] 03/16/2025 11:00 AM EDT Nurse Only Allergy/Immunology [place] [address] [place] [address] Nurse Nat[facility] All[facility] [place] [address] [place] [address] 07/20/2025 1:00 PM EDT Office Visit Allergy/Immunology, [place] [address] [place] [address] Hollis Vick MD [address] [place] [address] Health Maintenance Due Date Last [...] filedocumented as of this encounter Care Teams Electrostatic Paint Operator Relationship Specialty Start Date End Date Sheri Cedeño MD [address] [place] [id number] PCP - General Family Medicine 04/18/21 documented as of this encounter
--- OUTSIDE RECORDS SUMMARY | 2025-02-26 10:36 | External Medical Summary | Summary of Care ---
Author Name Unknown Organization [facility] Address [address] [place] [address] Phone [phone] Care Team Providers Care Renovator Machine Operator Name Role Phone Sheri Cedeño MD Primary Care Provider [phone] Reason for Visit * Reason Comments Medication Administration Xolair * Precert (Within 10 days (routine)) - Authorized Specialty Diagnoses / Procedures Referred By Contsolis t Referred To Contact Allergy and Immunology Diagnoses Idiopathic urticaria Procedures INJECTION, OMALIZUMAB, 5 MG Khai Talley DO Referral ID Status Reason Start Date Expiration Date V isits Requested Visits Authorized [id number] Authorized Precert 09/01/2019 11/17/[phone] Encounter Details Date Type Department Care Team (Late st Contact Info) Description 02/16/2025 9:00 AM EDT Nurse Only Allergy/Immunology [facility] [place] [address] [place] [address] Natacha, Nurse Allergy [facility] [address] [place] [address] Medication Administration (Xolair) Allergies Active Allergy Reactions Criticality Noted Date Comments Adhesive Tape Hives 07/31/2013 Amoxicillin Hives 11/02/2014 Bee Venom 10/29/2018 Iodine Hives 11/02/2014 Cephalexin Rash 11/02/2014 Penicillins Hives 03/15/2016 documented as of this encounter (statuses as of 02/16/2025) Medications VITAMIN D3 5000 UNITS PO TABS [...] EPINEPHrine 0.3 MG/0.3ML Injection Solution Auto-injector (Autoinjector)I ndications:[employer] sherice idiopathic urticaria For a severe reaction: [...] 150 mgIndications:Chronic idiopathic urticaria 150 mg SC [id number] 06/24/2024 Acti ve Omalizumab (Xolair) inj 150 mgIndications:Chronic idiopathic urticaria 150 mg SC [id number] 06/24/2024 Acti ve Omalizumab (Xolair) inj 150 mgIndications:Chronic idiopathic urticaria 150 mg SC [id number] 06/24/2024 Acti ve documented as of this encounter (statuses as of 02/16/2025) Active Problems Problem Noted Date Diagnosed Date Urticaria 11/23/2014 Angioedema 11/23/2014 H/O allergy to radiographic contrast media 11/23 Drug allergy, antibiotic 11/23/2014 H/O allergy to latex 11/23/2014 documented as of this encounter (statuses as of 02/16/2025) Resolved Problems Problem Noted Date Diagnosed Date Resolved Date Encounter for examination fo r normal comparison and control in clinical research program 02/11/2019 06/20/2020 Overview (03/06/2021): DO NOT DELETE [facility] DETECT Study: Project # [id number], Instructor Creeler: Hollis Pitts, PhD. SUMMARY: Goal: Establish test [...] contact study staff at ; after hours Instructor Creeler via the [facility] hospital gear tooth lapping machine operator . Please contact study team before resolving/deleting from patients problem list. Study phone number: [phone]. Diagnosis changed due to Research Module. Go to Snapshot for study details. Encounter for examination fo r normal comparison and control in clinical research program 02/11/2019 07/19/2022 Overview (03/06/2021): DO NOT DELETE - [facility] DETECT Study: Project # [id number], Instructor Creeler: Bob Conner, MS, MPH. SUMMARY: Goal: Establish [...] contact study staff at ; after hours Instructor Creeler via the [facility] hospital gear tooth lapping machine operator . - Please contact study team before resolving/deleting from patients problem list. Study phone number: [phone]. Diagnosis changed due to Research Module. Go to Snapshot for study details. 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 (5 years old or older) Answer Date of Assessment Author No 03/23/2015 2:00 PM Amadeo Campos LPN * Do you have difficulty dressing [...] Assessment Author No 03/23/2015 2:00 PM Amadeo Campos, LÓPEZ documented as of this encounter Mental Status * Because of a physical, mental, or emotional condition, do you have serious difficulty concentrating, remembering, or making decisions? (5 years old or older) Answer Entry Date Author No 03/23/2015 2:00 PM Amadeo Campos LPN documented in this encounter Nursing Notes * Heena Mendoza LPN - 02/16/2025 9:18 AM EDT Pt with no clinical changes since injections. Injection sites with no wheal and no flare. Pt verbalized understanding to keep epi pen on his/her person for next 24 hours * Heena Mendoza LPN - 02/16/2025 8:54 AM EDT The pt has been properly identified by confirmation of name and date of . Pt arrived in clinic for Xolair injection. Pt has Epi pen on her person. Pt aware to stay in clinic 30 minutes post injection. documented in this encounter Plan of Treatment Upcoming Encounters Date Type Department Care Team (Late st Contact Info) Description 03/16/2025 11:00 AM EDT Nurse Only Allergy/Immunology [facility] [place] [address] [place] [address] Natacha, Nurse Allergy [facility] [address] [place] [address] 07/20/2025 1:00 PM EDT Office Visit Allergy/Immunology, [place] [address] [place] [address] Hollis Vick MD [address] [place], [place] [id number] Health Maintenance Due Date Last Done Comments Depression Screening 1957 Hepatitis C Screening 1963 DTap/Tdap Vaccines (1 - Tdap) 1964 COVID-19 Vaccine ( season) 2024 02/11/2023, 09/14/2021, 01/16/2021, Additional history exists Influenza Vaccine (FLU shot) (Season Ended) 2025 08/14/2022, 08/21/2021, 08/18/2019, Additional history exists DXA [...] Not on filedocumented as of this encounter Visit Diagnoses Diagnosis Urticaria, chronic [L50.8]- Primary Other specified urticaria documented in this encounter Administered Medications Active Administered Medications - up to 3 most recent administrations Medication Order MAR Action Action Date Dose Rate Site Omalizumab (Xolair) inj 150 mg 150 mg, Subcutaneous, [id number], First dose on Sat06/24/24 at 1030, Until Discontinued, Entire dose contained in 1 syringe. TOTAL DOSE: 150 mgIndications:Chronic idiopathic urticaria Given 02/16/2025 8:48 AM EDT 150 mg Arm Left Upper Given 01/19/2025 9:43 AM EST 150 mg Ar m Left Upper Given 12/22/2024 10:42 AM EST 150 mg A rm Right Upper Omalizumab (Xolair) inj 150 mg 150 mg, Subcutaneous, [id number], First dose on Sat06/24/24 at 1030, Until Discontinued, DOSE SPLIT BETWEEN 2 SYRINGES! Syringe 1 of 2 contains 150 mg. Administer both syringes for a TOTAL DOSE of 300 MG.Indications:Chronic idiopathic urticaria Given 02/16/2025 8:48 AM EDT 150 mg Arm Right Upper Given 01/19/2025 9:42 AM EST 150 mg Ar m Left Upper Given 12/22/2024 10:41 AM EST 150 mg A rm Right Upper Omalizumab (Xolair) inj 150 mg 150 mg, Subcutaneous, [id number], First dose on Sat06/24/24 at 1030, Until Discontinued, DOSE SPLIT BETWEEN 2 SYRINGES! Syringe 2 of 2 contains 150 mg. Administer both syringes for a TOTAL DOSE of 300 MG.Indications:Chronic idiopathic urticaria Given 02/16/2025 8:47 AM EDT 150 mg Arm Right Upper Given 01/19/2025 9:41 AM EST 150 mg Ar m Right Upper Given 12/22/2024 10:40 AM EST 150 mg A rm Left Upper documented in this encounter Care Teams Renovator Machine Operator Relationship Specialty Start Date End Date Sheri Cedeño MD [address] [place] [id number] PCP - General Family Medicine 04/18/21 documented as of this encounter
[2025-02-26] MEDS ORDERED: ATROPINE SULFATE 0.1 MG/ML 10ML SYR IV PRN (10:53)
[2025-02-26] MEDS ORDERED: ONDANSETRON INJ 2 MG/ML 2 ML VIAL IV PRN (10:53)
[2025-02-26] MEDS ORDERED: fentaNYL citrate PF 100 MCG/2 ML VIAL IV PRN (10:53)
[2025-02-26] MEDS ORDERED: PROMETHAZINE HCL 6.25 MG in SODIUM CHLORIDE 0.9% 50 ML IV PRN (10:53)
[2025-02-26] MEDS ORDERED: ePHEDrine sulfate 50 MG/ML AMP IV PRN (10:53)
--- NOTE | 2025-02-26 11:05 | History & Physical Bridge Note ---
Date of Service February 26, 2025 History & Physical Bridge Note I have examined the patient, reviewed the History & Physical and in the interval since the performance of the History & Physical I have noted the following changes of clinical significance: no changes noted
[2025-02-26] MEDS ORDERED: Nursing to Pharmacy Communication SCH (11:30)
[2025-02-26] MEDS: TRANEXAMIC ACID 1,000 MG **IV Pre-op IV SCH (11:56)
[2025-02-26] MEDS: ceFAZolin 2000MG 2,000 MG/15 ML SYR IV SCH (12:01)
[2025-02-26] MEDS: ROPIV 0.5% 246mg, Ketorolac 30mg, EPINEPHrine 0.5mg in NSS INFIL SCH (12:58)
[2025-02-26] MEDS: ORTHO JOINT ANESTHETIC ONE (12:59)
[2025-02-26] MEDS: TRANEXAMIC ACID 1,000 MG **IV Intra-op IV SCH (13:03)
[2025-02-26] MEDS ORDERED: ePHEDrine sulfate 50 MG/5 ML SYR ONE (13:09)
--- NOTE | 2025-02-26 13:12 | Operative Report ---
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 A tenodesis was opted. This was a separate and distinct portion of the procedure. For these reasons, a CPT code modifier 59 will be added to this case. Implants used: I used a [employer] Comprehensive total shoulder arthroplasty system with a size 11 press fit micro humeral stem, a size 42 x 18 eccentric humeral head, and a size 3 glenoid with a trabecular metal peg. The glenoid was cemented in place with Palacos G cement. Annie arrived at [facility] for the above procedure. She was seen in the preoperative holding area and the operative extremity was identified and signed. She was given a preoperative antibiotic, TXA, and an interscalene nerve block. She was taken back to the operating room, laid on table in supine position, and put under general anesthesia. She was then put into the beachchair position. The shoulder was then prepped and draped in sterile fashion. A timeout was done and the patient and the operative extremity was properly identified. A deltopectoral approach was used. Dissection was taken down through the fascia and the deltoid was retracted laterally and the conjoined tendon was retracted medially. The anterior shoulder was exposed. The biceps groove was opened up and the biceps tendon was examined extensively. The biceps tendon demonstrated enlargement and inflammatory changes consistent with longstanding inflammation in the context of osteoarthritis. The long head of the biceps tendon was then tenodesed to the upper border of the pectoralis major. This was a separate and distinct portion of the procedure. The subscapularis was then released off the lesser tuberosity with a centimeter of cuff tissue remaining. The inferior capsule was released and the humeral head was dislocated. The rotator cuff was inspected and intact. A canal finding reamer was sent down the center of the humeral canal. Sequential reaming up to a size 11 reamer was done. Offset reamer a proximal humeral resection guide was placed. The proximal humerus was resected at 135 of inclination and 30 of retroversion. Inferior osteophytes were then removed and the glenoid was exposed. Time was spent doing an appropriate labral release. The glenoid measured to be a size 3. A 3.2 mm Steinmann pin was placed in the central hole of the glenoid vault pin guide. The glenoid was then reamed with a propeller reamer. The central post cutter was then used to prepare for the central boss. The cannulated peripheral peg drill guide was then placed and 3 peg holes were drilled. The final size 3 glenoid was then cemented in place with Palacos G cement. Surrounding soft tissues were then injected with 100 cc of an orthopedic pain control cocktail. Once cement had dried the proximal humerus was once again exposed. Sequential broaching of the humerus up to a size 11 broach was done. Off that broach a size 42 x 18 eccentric humeral head was trialed. The shoulder was then reduced, brought through a full range of motion, and felt to be stable. The shoulder was then dislocated and the broach was removed. The final size 11 micro humeral stem implant was then impacted into place. A size 42 x 18 eccentric humeral head was then impacted onto the humeral stem. The shoulder was then reduced and once again brought through a full range of motion and felt to be stable. The subscapularis was then tenodesed back to the lesser tuberosity with transosseous FiberWire sutures and side to side sutures with the arm in 45 of external rotation. 2 sutures were placed in the lateral rotator interval. A dilute betadyne lavage was then done for 3 minutes. The joint was then irrigated with normal saline solution. Hemostasis was obtained. The interval was closed with 2-0 Vicryl suture. The skin was closed with 2-0 Vicryl and cb. A Silverlon dressing was placed and the arm was rested in a regular arm sling. She was then extubated and transferred to a hospital bed. She was taken to the postanesthesia care unit in stable condition. She tolerated the procedure well. William Gilliam PA-C, was present for the entire procedure. He was critical for patient positioning, prepping, draping, retraction exposure, wound closure and application of sterile dressing. I attest to the content of the Intraoperative Record and any orders documented therein. Any exceptions are noted below.
--- NOTE | 2025-02-26 13:51 | XRay Report ---
XR shoulder RT min 2V routine CLINICAL HISTORY: Post shoulder surgery COMPARISON: None FINDINGS: Right shoulder prosthesis shows no hardware complication. There is expected soft tissue ga s. Skin cb are present. IMPRESSION: Unremarkable postoperative exam. ACT 112: Negative or not required by law. Electronically signed by: Hollis Mclaughlin M.D. 02/26/2025 1:50 PM
[2025-02-26] MEDS ORDERED: ALBUTEROL HFA 8 GM INHALER INH PRN (15:47)
[2025-02-26] MEDS ORDERED: NALOXONE HCL 0.4 MG/1 ML VIAL/CARP IV PRN (15:47)
[2025-02-26] MEDS ORDERED: METOCLOPRAMIDE HCL INJ 5 MG/ML 2 ML VIAL IV PRN (15:47)
[2025-02-26] MEDS ORDERED: HYDROmorphone INJ 0.5 MG/0.5 ML SYR IV PRN (15:47)
[2025-02-26] MEDS ORDERED: bisacodyL 10 MG SUPP PR PRN (15:47)
[2025-02-26] MEDS ORDERED: oxyCODONE HCL IR 5 MG TAB (IMMEDIATE RELEASE) PO PRN (15:47)
[2025-02-26] MEDS ORDERED: MAGNESIUM HYDROXIDE SUSP 30 ML UDC PO PRN (15:47)
[2025-02-26] MEDS: BUPIVACAINE LIPOSOME 1.3% 133 MG/10 ML VIAL ONE (16:00)
[2025-02-26] MEDS: ceFAZolin 2,000 MG/15 ML IV PUSH IV ONE (16:01)
[2025-02-26] MEDS: ALLERGY Noted to ORDERED Medication SCH (16:04)
[2025-02-26] MEDS: KETOROLAC TROMETHAMINE 15 MG/ML VIAL IV SCH (16:12)
[2025-02-26] MEDS: ceFAZolin 1000MG 1,000 MG/7.5 ML SYR IV SCH (17:35)
[2025-02-26] MEDS: SENNA 8.6 MG TAB PO SCH (21:27)
[2025-02-26] MEDS: DOCUSATE SODIUM 100 MG CAP PO SCH (21:27)
--- NOTE | 2025-02-27 07:11 | Orthopedic Progress Note ---
Date of Service February 27, 2025 Assessment & Plan (1) Status post replacement of right shoulder joint: Overall she is doing fairly well. She is not having much pain in the right shoulder. She will be seen by physical therapy today for ambulation and range of motion exercises. She can be discharged to home later today. She will follow-up with orthopedics in 2 weeks. Vinod Valencia was seen and examined at bedside this morning. Overall she is doing fair ly well. She is not having much pain in the right shoulder. The nerve block still in effect. She has no complaints.. Review of Systems All systems reviewed & are unremarkable except as noted in HPI & below. Physical Exam On physical exam of the right shoulder, the dressing is clean and dry. She is wearing her sling as instructed. The nerve block is still in effect.. Results & Data Results & Data Laboratory Results . Diagnostic Findings Postoperative x-rays of the right shoulder show the prosthesis to be in anatomic alignment without any evidence of fracture complication, or loosening.. PG Care Time/CCT Total # of Minutes Spent Total Time Spent with Patient: Total time spent is greater than 50% in coordination of care (as documented) at patient's floor/unit and/or counseling patient: Coding Level of Care Code 13035 Post Operative Follow-Up Diagnoses Status post replacement of right shoulder joint Z96.611
--- NOTE | 2025-02-27 07:12 | Discharge Summary ---
Date of Service February 27, 2025 Admission HPI (Per Admitting) Annie is a pleasant 79-year-old female who has been dealing with chronic right shoulder pain. She has had injections in the past, which never really helped. She has some crepitus and crunching in her shoulder joint. She has been doing therapy with minimal relief. MRI and clinical examination were diagnostic for advanced osteoarthritis of the right shoulder. If failed conservative treatment, she has elected to proceed with a right anatomic total shoulder arthroplasty. Admission Exam (Per Admitting) Home physical exam of the right shoulder, she has slightly decreased range of motion. She has 5 5 strength throughout. She has pain over the glenohumeral joint line. Principal Diagnosis Same as "Discharge Diagnosis" noted below under Discharge Instructions. Discharge Exam On physical exam of the right shoulder, the dressing is clean and dry. She is wearing her sling as instructed. The nerve block is still in effect.. Discharge Data Procedures Performed Operation Date: 02/26/25 11:00 Actual Procedures p Right Anatomic Total Shoulder Arthroplasty (Right) - Avery Thompson DO Ordered Studies 02/26/25 05:00 US - OR guided needle placemen Routine Hospital Course (1) Status post replacement of right shoulder joint: On February 26, 2025 Annie arrived at [facility] and underwent a right shoulder replacement without complication. She had a general anesthetic and a right interscalene nerve block. Postoperatively, she was placed in a sling and transferred to the general orthopedic floors. Her hospital course was uneventful. On postop day #1, her vital signs were stable and her pain was well-controlled. She was able to participate well with physical therapy doing ambulation and range of motion exercises. She was then discharged to home. She will follow-up with orthopedics in 2 weeks. PG Care Time/CCT Total # of Minutes Spent Total Time Spent with Patient: Total time spent is greater than 50% in coordination of care (as documented) at patient's floor/unit and/or counseling patient: Discharge Plan Discharge Items Patient Disposition: Home - Self-Care Reason For Visit: Right Shoulder Arthritis Discharge Diagnosis: Right shoulder replacement Activity: Per Instructions section Non-emergency contact: Surgeon Call non-emergency contact if: your wound has increased redness and your wound has increased drainage Follow-up/Referrals: Sheri Cedeño MD [Primary Care Provider] - Diet: Regular Addtl Attending Provider Instructions: Activity and Therapy Recommendations: * If you are using [facility] then therapy will be provided at your home until they feel you have accomplished all of your goals. * If you are using [facility] then Physical Therapy will be provided until they feel you are ready to start Outpatient Physical Therapy. * If you are not using home therapy then Outpatient Physical Therapy should start about 3-5 days from your day of surgery. Therapy will last about 8-12 weeks * Wear your sling for 3 weeks, unless otherwise instructed. You may remove your sling to shower and to dress, but otherwise, you should be in your sling at all times, including while sleeping * The shoulder replacement is very stable and you can use your hand while in the sling * You were shown a series of exercises in the hospital. Do these exercises daily including the exercises you were shown in physical therapy. Medications: * Narcotic You will likely be sent home from the hospital with a prescription for the narcotic pain medication that worked best throughout your stay. * Cefadroxil -take the antibiotic twice a day for 10 days to help prevent infection. * Other medications may be prescribed for specific circumstances. If you have any questions, please call the office at . * Resume previous home medications unless otherwise instructed Dressing Care: Leave the Silverlon dressing in place for 7 days. After 7 days you may remove the dressing. If the incision is not draining then you may leave the cb open to air. If there is a little bit of drainage or if the cb are getting stuck on your clothing then cover the incision with a dry dressing. The cb will be removed at your 2 week follow-up appointment. Showering: You may shower with the Silverlon dressing in place. Do not let the shower spray hit the dressing directly. Pat the Silverlon dressing dry. If the dressing becomes wet underneath, then simply remove the dressing. Keep the incision dry until you are 7 days out from the day of surgery. After 7 days you may remove the Silverlon dressing and shower with the cb exposed. Let soapy water run over the cb and pat them dry. Do not scrub or soak the incision. Diet: You may resume your previous diet. Things To Watch For: * Drainage from the incision site that occurs more than one week after your surgery. * Increased redness at the incision site. * Fever above 102 degrees Fahrenheit. * Unusual chest pain or shortness of breath. * Call [facility] at with any of the above problems Follow-Up Visit: Follow-up with Dr. Thompson's office 2-3 weeks after your day of surgery. We will remove your cb and answer any questions. If you have any additional questions or concerns, Dr Thompson is usually in the office at the same time and will be available An appointment was probably scheduled when you signed-up for surgery in the office. If you have any questions call More detailed instructions as well as Frequently Asked Questions were provided in a folder by our office when you signed-up for surgery. Please review these instructions when you get home. If you have any further questions or concerns, please feel free to call the office at [phone] Pending Studies at Discharge: No Stand-Alone Forms: My [facility], Smoking Cessation Medications and DC Order Prescriptions: New cefadroxil 500 mg capsule 500 mg PO BID 10 Days Qty: 20 0RF oxycodone 5 mg tablet 5 mg PO Q6H PRN (Reason: pain) Qty: 30 0RF Continued hydroxyzine pamoate 25 mg Capsule 25 mg PO HS PRN (Reason: Angioedema) cholecalciferol (vitamin D3) [Vitamin D3] 25 mcg (1,000 unit) Capsule 25 mcg PO QAM calcium citrate 200 mg (950 mg) Tablet 200 mg PO BID coenzyme Q10 [Co Q-10] 200 mg Capsule 200 mg PO BID red yeast rice 600 mg Tablet 600 mg PO BID omalizumab 75 mg/0.5 mL Syringe 0.5 mg SUBCUT MONTHLY cetirizine 10 mg Tablet 10 mg PO DAILY PRN (Reason: Angioedema) flaxseed oil 1,000 mg Capsule 1,000 mg PO BID Rx Instructions: administer with meals sodium chloride [Ilya 128] 5 % Ointment 1 applic OPHTHALMIC (EYE) HS Systane Ultra 0.4-0.3 % Drops 2 drp OPHTHALMIC (EYE) BID PRN (Reason: Dry Eyes) Centrum Silver 400-250 mcg Tablet,Chewable 1 tab PO DAILY PreserVision AREDS-2 250-90-40-1 mg Tablet,Chewable 1 tab PO AMPM albuterol sulfate 90 mcg/actuation Hfa Aerosol Inhaler 2 puff INHALATION QID PRN (Reason: asthma) Discharge Orders: Discharge Order (Routine); Ordered 02/27/25 Ordered By: Avery Thompson Admission Data Admit Date/Time: 02/26/25 13:35 Attending Provider: Avery Thompson Admit Provider: Avery Thompson Primary Care Provider: Sheri Cedeño
[2025-02-27 07:55] VITALS: RESP 16
[2025-02-27] MEDS: MULTIVITAMIN TAB PO SCH (08:46)
[2025-02-27] MEDS: dexAMETHasone 4 MG TAB PO SCH (08:46)
[2025-02-27] MEDS: ONDANSETRON INJ 2 MG/ML 2 ML VIAL IV PRN (08:46)
[2025-02-27 11:44] VITALS: BP 126/62; PULSE 68; TEMP 99; O2SAT 93
== END 2025-02-27 12:38 | disposition home or self-care (01) ==
LOC: 3N 08:43 → ASU 08:43